=== PATIENT | female | born 1980 | race Caucasian/White ===

== ENCOUNTER 2020-05-21 16:06 | Emergency (ER) | payer OTHER, SELFPAY ==
[2020-05-21 16:29] VITALS: BP 160/92; PULSE 98; RESP 18; TEMP 37; O2SAT 98; BMI 36.6
[2020-05-21 17:00] VITALS: BP 151/100; PULSE 100; RESP 18; TEMP 36.6; O2SAT 97
--- NOTE | 2020-05-21 17:06 | PC.NURSE ---
Patient arrives reporting vaginal bleeding x 15 days. Reports flow has remained heavy the entire time. Per patient will fill a pad in 45 minutes. Patient is alert and oriented. Denies fatigue, weakness, dizziness, or SOB. Respirations regular and even. Skin PWD. VSS. Awaiting primary evaluation.
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
[2020-05-21] MEDS: 0.9 % Sodium Chloride 1,000 ML 999 ML IVCONT (17:57)
[2020-05-21 18:04] LABS: Basophils Absolute Auto 0.1 X10*3/uL (0.0-0.2); Basophils Percent Auto 0.7 % (0-2); Eosinophils Absolute Auto 0.4 X10*3/uL (0.0-0.4); Hemoglobin 10.6 g/dl (12.0-16.0); Imm Gran Abs Auto 0.01 X10*3/uL (0.00-0.03); Imm Gran Pct Auto 0.1 % (0.0-0.4); Lymphocytes Absolute Auto 2.2 X10*3/uL (1.2-4.9); Lymphocytes Percent Auto 30.3 % (20-40); MANUAL DIFF FLAG NO; Mean Corpuscular HGB Conc 31.2 g/dl (31.0-35.0); Mean Corpuscular Hemoglobin 25.4 pg (27.0-33.0); Mean Corpuscular Volume 81.5 fL (80-98); Mean Platelet Volume 11.2 fL (9.4-12.3); Monocytes Absolute Auto 0.4 X10*3/uL (0.1-1.2); Monocytes Percent Auto 5.5 % (2-11); Neutrophils Absolute Auto 4.1 X10*3/uL (2.0-8.3); Neutrophils Percent Auto 57.4 % (45-73); Platelet Count 261 X10*3/uL (160-400); Red Blood Count 4.17 X10*6/uL (4.20-5.50); Red Cell Distribution Width 13.6 % (11.0-16.0); White Blood Count 7.2 X10*3/uL (4.8-10.8)
[2020-05-21 18:12] LABS: INTERNATIONAL NORM RATIO 1.2 (0.9-1.1); Prothrombin Time 14.3 SEC (10.8-13.0)
[2020-05-21 18:14] LABS: Partial Thromboplastin Time 33.6 SEC (24.1-38.0)
[2020-05-21 18:32] LABS: Anion Gap 13 (12-20); Blood Urea Nitrogen 9 mg/dL (9-16); Calcium 9.6 mg/dL (8.4-10.2); Carbon Dioxide 24 mmol/L (22-29); Chloride 104 mmol/L (96-108); Creatinine Clr Calc Pharmacy 110.2; Estimated Glomerular Filt Rate > 60; Glucose Random 89 mg/dL (60-115); Potassium 3.9 mmol/l (3.3-5.1); Sodium 137 mmol/L (135-145)
--- NOTE | 2020-05-21 18:37 | US_ITS ---
EXAM: Pelvic Ultrasound CLINICAL INDICATION: Abnormal uterine bleeding. COMPARISON: No similar prior imaging available for comparison. TECHNIQUE: The pelvis was evaluated using transabdominal and transvaginal imaging. FINDINGS: The uterus measures 10.3 x 4.8 x 5.1 cm in longitudinal by AP by transverse dimension. The endometrial stripe is not thickened and measures 0.9 cm. The cervix measures approximately 3.5 cm in length. Nabothian cysts are noted within the cervix. Prominent vessels noted in the region of the endocervical junction, nonspecific. Myometrium appears asymmetrically thickness, more prominent posteriorly. There is a suspected 1.2 cm anterior fundal fibroid. The left ovary measures approximately 2.1 x 2.9 x 1.2 cm. The right ovary measures approximately 3.1 x 3.3 x 2.6 cm. There is a 2.1 cm left ovarian cyst and a 1.7 cm right ovarian cyst, both of which are simple in appearance. Within the right ovary there is a 1.7 cm solid-appearing lesion which is nonspecific. There is no free fluid in the pelvis. US/US pelvic complete IMPRESSION: 1. Endometrium measures 9 mm in thickness. 2. Asymmetric myometrium. Also noted are prominent vessels in the region of the endocervical junction. A small suspected fibroid is also noted. Clinical correlation is recommended. Further evaluation can be obtained with MRI imaging as clinically indicated. 3. Small bilateral ovarian cysts. 4. Nonspecific 1.7 cm solid-appearing lesion of the right ovary, possibly a complex cyst. Short-term interval follow-up recommended to ensure resolution. An underlying ovarian mass is not entirely excluded.
--- NOTE | 2020-05-21 18:46 | PC.NURSE ---
IV established and labs drawn. Hung NS 1L. Patient tolerated well. Assessed by Babs DELIVERY AND INSTALLATION SUBCONTRACTOR. Pelvic exam obtained at bedside. Patient reports some pain. Large clots removed from vaginal canal. Awaiting lab results, ultrasound, and consult with Dr. Vanegas.
[2020-05-21] MEDS: Tranexamic Acid 650 MG TABLET 1300 MG PO (18:53)
[2020-05-21 18:55] VITALS: BP 162/101; PULSE 98; RESP 18; TEMP 36.6; O2SAT 99
[2020-05-21 19:57] LABS: Glucose Urine UA NEG (NEG); Leukocyte Esterase Urine NEG (NEG); Nitrite Urine NEG (NEG); PH 5.5 (5.0-8.0); Specific Gravity - Urine <= 1.005 (1.005-1.025); Urine Blood 3+ (NEG); Urine Ketones NEG (NEG); Urine Protein NEG (NEG-TRACE)
[2020-05-21 20:00] LABS: Appearance Urine CLEAR; Color Urine STRAW
[2020-05-21 20:08] LABS: RBC Urine 30-49 /HPF (0); Squamous Epithelial Cell Urine 1+ /LPF; WBC Urine 0 /HPF (0-4)
[2020-05-21 20:24] LABS: UPreg QC Valid YES; Urine Pregnancy NEGATIVE (NEGATIVE)
[2020-05-21 20:46] VITALS: BP 150/85; PULSE 86; RESP 18; TEMP 36.5; O2SAT 100
== END 2020-05-21 21:55 | disposition home or self-care (01) ==
PROVIDERS: Nurse Practitioner Family; Emergency Provider Internal Medicine
DX: N92.1 Excessive and frequent menstruation with irregular cycle (principal); R10.2 Pelvic and perineal pain
CPT/HCPCS: 36415; 76830; 76856; 80048; 81001; 81025; 85025; 85610; 85730; 96360; 99284

== ENCOUNTER 2020-05-23 14:28 | Outpatient (REF) | payer OTHER, SELFPAY ==
[2020-05-23 16:16] LABS: TSH reflex Free T4 0.44 mIU/mL (0.32-4.0)
[2020-05-24 19:22] LABS: Follicle Stimulating Hormone 4.9 mIU/mL
[2020-05-30 10:37] LABS: HPV mRNA E6/E7 rflx Not Detected (Not Detected)
== END 2020-05-23 14:29 | disposition home or self-care (01) ==
LOC: HO.LAB 14:28
PROVIDERS: Visit Provider Obstetrics & Gynecology
DX: N93.9 Abnormal uterine and vaginal bleeding, unspecified (principal)
CPT/HCPCS: 83001; 84443; 87624; 87625; 88141; 88142; 99202

== ENCOUNTER → 2020-06-06 10:58 | Outpatient (BNVA) | payer OTHER, SELFPAY | PROVIDERS: Visit Provider Obstetrics & Gynecology | DX: Z76.89 Persons encountering health services in other specified circumstances (principal) ==

== ENCOUNTER 2020-07-02 08:57 | Outpatient (REF) | payer OTHER, SELFPAY | END 2020-07-02 08:58 | disposition home or self-care (01) | LOC: HO.LAB 08:57 | PROVIDERS: Visit Provider Internal Medicine | DX: Z20.822 Contact with and (suspected) exposure to COVID-19 (principal) | CPT/HCPCS: 36415; C9803; U0003 ==

== ENCOUNTER 2020-12-14 09:34 | Outpatient (REF) | payer OTHER, SELFPAY ==
[2020-12-14 10:58] LABS: MANUAL DIFF FLAG NO
[2020-12-14 11:07] LABS: Basophils Absolute Auto 0.1 X10*3/uL (0.0-0.2); Basophils Percent Auto 1.1 % (0-2); Eosinophils Absolute Auto 0.5 X10*3/uL (0.0-0.4); Eosinophils Percent Auto 8.1 % (0-4); Hematocrit 32.1 % (37-47); Hemoglobin 9.8 g/dl (12.0-16.0); Imm Gran Abs Auto 0.02 X10*3/uL (0.00-0.03); Imm Gran Pct Auto 0.4 % (0.0-0.4); Lymphocytes Absolute Auto 1.8 X10*3/uL (1.2-4.9); Lymphocytes Percent Auto 31.9 % (20-40); Mean Corpuscular HGB Conc 30.5 g/dl (31.0-35.0); Mean Corpuscular Hemoglobin 23.6 pg (27.0-33.0); Mean Corpuscular Volume 77.3 fL (80-98); Mean Platelet Volume 11.4 fL (9.4-12.3); Monocytes Absolute Auto 0.3 X10*3/uL (0.1-1.2); Monocytes Percent Auto 4.8 % (2-11); Neutrophils Percent Auto 53.7 % (45-73); Platelet Count 225 X10*3/uL (160-400); Red Blood Count 4.15 X10*6/uL (4.20-5.50); Red Cell Distribution Width 16.6 % (11.0-16.0); White Blood Count 5.6 X10*3/uL (4.8-10.8)
[2020-12-14 11:45] LABS: Erythrocyte Sedimentation Rate 8 MM/HR (0-20)
[2020-12-17 11:53] LABS: IgA 234 mg/dL (47-310); IgG 1012 mg/dL (600-1640); IgM 109 mg/dL (50-300)
[2020-12-20 08:16] LABS: Immunoglobulin E 366 kU/L (<OR=114)
== END 2020-12-14 09:35 | disposition home or self-care (01) ==
LOC: HO.LAB 09:34
PROVIDERS: Visit Provider Hospitalist
DX: J45.51 Severe persistent asthma with (acute) exacerbation (principal); T78.40XA Allergy, unspecified, initial encounter; J33.9 Nasal polyp, unspecified; Z79.899 Other long term (current) drug therapy
CPT/HCPCS: 36415; 82784; 82785; 85025; 85652; 99202

== ENCOUNTER → 2021-01-14 10:36 | Outpatient (BNVA) | payer OTHER, SELFPAY | PROVIDERS: Visit Provider Hospitalist | DX: J33.9 Nasal polyp, unspecified (principal); R05 Cough; J45.50 Severe persistent asthma, uncomplicated | CPT/HCPCS: 99212 ==

== ENCOUNTER → 2021-02-11 13:37 | Outpatient (BNVA) | payer OTHER, SELFPAY | PROVIDERS: Visit Provider Hospitalist | DX: J45.50 Severe persistent asthma, uncomplicated (principal) | CPT/HCPCS: 99211 ==

== ENCOUNTER → 2021-05-16 13:33 | Outpatient (BNVA) | payer OTHER, SELFPAY | PROVIDERS: Visit Provider Hospitalist | DX: J45.51 Severe persistent asthma with (acute) exacerbation (principal); J33.9 Nasal polyp, unspecified; R05.9 Cough, unspecified; Z88.8 Allergy status to other drugs, medicaments and biological substances; J30.1 Allergic rhinitis due to pollen; Z91.09 Other allergy status, other than to drugs and biological substances | CPT/HCPCS: 99212 ==

== ENCOUNTER → 2022-01-09 13:37 | Outpatient (BNVA) | payer OTHER, SELFPAY | PROVIDERS: Visit Provider Hospitalist | DX: J45.50 Severe persistent asthma, uncomplicated (principal); J33.9 Nasal polyp, unspecified; Z79.899 Other long term (current) drug therapy | CPT/HCPCS: 99212 ==

== ENCOUNTER 2023-01-05 15:51 | Outpatient (AMB) | payer OTHER, SELFPAY ==
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
[2023-01-05 15:57] VITALS: PULSE 89; O2SAT 97; BMI 42.1
== END 2023-01-05 16:13 | disposition home or self-care (01) ==
PROVIDERS: Visit Provider Hospitalist
DX: J45.50 Severe persistent asthma, uncomplicated (principal); J33.9 Nasal polyp, unspecified; R05.9 Cough, unspecified
CPT/HCPCS: 99214

== ENCOUNTER → 2023-01-05 15:51 | Outpatient (BNVA) | payer OTHER, SELFPAY | PROVIDERS: Visit Provider Hospitalist | DX: J45.40 Moderate persistent asthma, uncomplicated (principal); R05.9 Cough, unspecified; J33.9 Nasal polyp, unspecified | CPT/HCPCS: 99212 ==

== ENCOUNTER 2023-10-02 14:48 | Outpatient (REF) | payer OTHER, SELFPAY ==
[2023-10-02 09:47] VITALS: PULSE 92; RESP 16; O2SAT 97
--- NOTE | 2023-10-02 15:58 | PFT_ITS ---
Indication: Asthma Spirometry [FEV1 to FVC 84%; FEV1 2.56 L; FVC 3.04 L. no significant response to bronchodilators noted. Maximum voluntary ventilation 105% predicted] Lung Volumes [Total lung capacity 84% predicted] Diffusion Capacity DLCO 102% predicted Comparisons [None] Interpretation [No obstructive nor restrictive ventilatory defects appreciated. No significant response to bronchodilators noted. Normal maximum voluntary ventilation. Lung volumes are normal using capacity also within normal limits. If asthma is in differential methacholine challenge may be helpful to assess for hyperreactive airways. Clinical correlation warranted.] MTDD
== END 2023-10-02 14:49 | disposition home or self-care (01) ==
LOC: HO.RESP 14:48
PROVIDERS: PCP Physician Assistant; Visit Provider Hospitalist
DX: J45.909 Unspecified asthma, uncomplicated (principal)
CPT/HCPCS: 94010; 94640; 94727; 94729

== ENCOUNTER → 2023-10-02 15:58 | Outpatient (BNV) | payer OTHER, SELFPAY | PROVIDERS: PCP Physician Assistant; Visit Provider Hospitalist | DX: J45.909 Unspecified asthma, uncomplicated (principal) | CPT/HCPCS: 94060; 94727; 94729 ==

== ENCOUNTER → 2023-11-06 15:31 | Outpatient (BNVA) | payer OTHER, SELFPAY | PROVIDERS: PCP Physician Assistant; Visit Provider Hospitalist | DX: J45.50 Severe persistent asthma, uncomplicated (principal); J33.9 Nasal polyp, unspecified; R05.3 Chronic cough; Z79.899 Other long term (current) drug therapy | CPT/HCPCS: 99212 ==

== ENCOUNTER 2025-01-30 15:24 | Outpatient (AMB) | payer OTHER, SELFPAY ==
[2025-01-30 15:26] VITALS: BP 170/112; PULSE 88; O2SAT 977; BMI 43.3
--- NOTE | 2025-01-30 15:26 | MHC.OFFVIS ---
Vital Signs 01/30/25 15:26 Height 5 ft 2 in Weight 236 lb 15.951 oz BMI 43.3 BP 170/112 H Blood Pressure Location Rt brachial Pulse 88 Pulse Source Pulse Oximeter Pulse Oximetry (%) 977 H Oxygen Delivery Method Room Air Intake Visit Reasons: Asthma Accompanied by: Self / Same As Patient Allergies ibuprofen (From MOTRIN) Allergy (Severe, Verified 01/30/25 15:30) Hives ENVIROMENTAL Allergy (Severe, Uncoded 11/06/23 15:41) NASAL STUFFINESS, ASTHMA FLARE UP pollen and alot of items Allergy (Severe, Uncoded 11/06/23 15:41) Hives HPI Comments Details: The Patient is a 44-year-old woman with a known history significant allergies and moderate persistent asthma. She had been tolerating the allergy shots for more than year in appeared to be helpful., more recently breathing has gotten significantly worse. The patient has required courses of prednisone for flare ups. She has not been seen any improvement. Therefore she was referred to Pulmonary. On examination today the patient is significantly wheezy. Although, she is reluctant to take additional prednisone if she can avoid it. In addition to having significant asthma she has nasal polyps. The patient does not have a history of adverse effects to aspirin. The patient has been introduced to any biologic therapy as of yet. Although with her significant if she does not respond to maximum respiratory therapy indeed be very reasonable to consider in order to improve respiratory status and decrease the need for prednisone. In her household she denies having any birds or any mold. She does very clean and tired house. Denies any fumes or toxins work. She does have significant allergies noted based on her allergy testing done by ENT. 01/14/2021 the patient is here for pulmonary follow-up visit. Overall she is doing a little better. She did try the Trelegy inhaler but resulted in nausea and vomiting. Therefore she stopped it when back on her Breo. She also try the Zyrtec but admitted to drowsy. She did go back in the Claritin. We did review her blood work demonstrating significant Eosinophilia and also elevation in her IgE level. She did get allergy shots recently at the ENT office. But, she had a significant reaction she could not continue. At this point the patient with a history of nasal polyposis and severe persistent asthma with elevations in the eosinophils/IgE will be a great candidate for Dupixent. We will therefore, will start the process to getting her on Dupixent. Based on her allergy shots and her significant allergies I will also refer her to an facility technician to further address this issue. In the meantime the patient will continue with current therapy. 11/06/2023 the patient is here for a pulmonary follow-up visit. The patient is doing significantly better. The Dupixent has been very effective for her. She no longer has any nasal polyps which is really reassuring. The patient has continue her respiratory therapy in addition to Allergy therapy. She has not required any prednisone. Denies any conjunctivitis and is tolerating the Dupixent well without any adverse effects. Explained to the patient that the Dupixent is not providing acute over treating the symptoms and the allergic reactions. The patient she is to follow-up with Allergy to further discuss immunotherapy. 01/30/2025 the patient is here for pulmonary follow-up visit. The patient overall has been doing very well from a respiratory status. Dupixent continues to be very affecting beneficial. She continues to carry her rescue inhaler but she does not have to use it. Nasal polyps also significantly improved. The issues that she is having a very high blood pressure today. Initially when the mA checked it on the right arm was 175/112. I did check it on the left time was 180/105. The patient is asymptomatic overall on further questions. We did reach out to her primary care at [facility]. I did speak to the nurse triage [facility] and she was going to call the patient and set her up an appointment for tomorrow. In the meantime if the patient develops any significant symptoms such as headaches palpitations chest pains or any other concerning symptoms she is to go to the ED for urgent medical evaluation. She will continue with the current Dupixent shots. They have been very affecting beneficial will follow-up in the spring for follow-up. [facility] Medical History (Updated 01/30/25 @ 21:37 by Tani Monzon MD) Hypertensive urgency Nasal polyps Cough Asthma Asthma Social History Alcohol intake: never Patient Tobacco Use Status: Never used Tobacco Sexual orientation: Straight/Heterosexual Gender identity: Female Review of Systems Const Denies night sweats ENT Denies change in voice, Denies lip swelling, Denies mouth pain, Reports nasal congestion, Reports nasal discharge and Denies tongue swelling Card Denies chest pain Resp Denies chest congestion, Reports cough and Denies wheezing GI Denies abdominal pain Musc Denies no additional complaints Neuro Denies Neuro-related abnormal movements Psych Denies no additional complaints Florian/Lymph Denies easy bleeding and Denies lymphadenopathy Aller/Immun Denies lip swelling, Denies tongue swelling and Denies wheezing Physical Exam Vital Signs: Last Vital Signs Pulse 88 01/30/25 15:26 BP 170/112 H 01/30/25 15:26 Pulse Ox 977 H 01/30/25 15:26 Oxygen Delivery Method Room Air 01/30/25 15:26 BMI result Body Mass Index 43.3 Const General: alert Neck Neck: Yes normal visual inspection, Yes full ROM and Yes no lymphadenopathy Chest Chest palpation & inspection: normal inspection of the chest Resp Effort & Inspection: normal respiratory effort Auscultation: clear to auscultation bilaterally and no wheezes Cardio Rate: regular rate Rhythm: regular rhythm Heart sounds: S1 normal heart sound present and S2 normal heart sound present GI Palpation (GI): Soft to palpation and nontender Auscultation: normal bowel sounds Skin General skin exam: rashes and/or lesions noted Extrem General: No clubbing, No cyanosis and Yes edema Assessment & Plan Assessment & Plan (1) Asthma: Code(s): J45.909 - Unspecified asthma, uncomplicated Category: Medical Qualifiers: Asthma complication type: uncomplicated Asthma persistence: persistent Asthma severity: severe Qualified Code(s): J45.50 - Severe persistent asthma, uncomplicated (2) Nasal polyps: Code(s): J33.9 - Nasal polyp, unspecified Category: Medical (3) Cough: Code(s): R05 - Cough Category: Medical Qualifiers: Cough type: chronic Qualified Code(s): R05.3 - Chronic cough (4) Hypertensive urgency: Code(s): I16.0 - Hypertensive urgency Category: Medical Plan continue Dupixent holding Breo LILY as needed continue Claritin continue [facility] called and will make her an urgent visit tomorrow. Pt knows to seek urgent medical care for any symptoms follow-up in to 6-8 months Coding Level of Care Code Est Pt Level 4 (16050) Complex EM visit Add On G2211 Diagnoses Severe persistent asthma without complication J45.50 Asthma complication type: uncomplicated Asthma persistence: persistent Asthma severity: severe Nasal polyps J33.9 Chronic cough R05.3 Cough type: chronic Hypertensive urgency I16.0 Time Spent (min) 16
--- OUTSIDE RECORDS SUMMARY | 2025-01-30 15:27 | XMS_ITS | Clinical Summary ---
Author Organization [facility] Address [address] [place] [id number] Phone Care Team Providers Care Clinical Data Analyst Name Role Phone Faby Kaminski DO Primary Care Provid er Allergies Active Allergy Reactions Criticality Noted Date Comments Aspirin Hives Medium 03/23/2018 Ibuprofen Hives Medium 10/11/2018 Medications albuterol 2.5 mg /3 mL (0.083 %) nebulizer solution Inhale 2.5 mg into the lungs. 01/25/2018 Active albuterol 90 mcg/actuation inhaler Inhale 2 puffs into the lungs. 01/25/2018 Active EPINEPHrine 0.3 mg/0.3 mL auto-injector Inject as directed. Active fluticasone propionate (FLONASE) 50 mcg/actuation nasal spray 2 sprays by Nasal route. Active loratadine (CLARITIN) 10 mg tablet Take 10 mg by mouth. Active montelukast (SINGULAIR) 10 mg tablet Take 10 mg by mouth. Active aspirin 325 MG EC tablet Take 1 tablet (325 mg total) by mouth daily. 120 tablet 5 06/06/2019 Active BREO ELLIPTA 200-25 mcg/dose inhalerIndicati ons:[facility] asthma INHALE 1 PUFF INTO THE LUNGS DAILY 180 each 3 06/01/2020 Active omeprazole (PRILOSEC) 40 MG capsule Take 1 capsule (40 mg total) by mouth daily. 30 capsule 5 04/15/2021 Active Active Problems Problem Noted Date Diagnosed Date Encounter for desensitization to allergen 2018 Assessment & Plan (05/31/2019 5:33 PM EST): Successful completion of day 1 of aspirin desensitization protocol. Mild reactions requiring additional dosing of 81 mg dose. To return in a.m. Plan to resume at 162 mg aspirin dose. Should take all medications including Breo, loratadine and Montelukast. Assessment & Plan (05/31/2019 5:13 PM EST): Successful aspirin desensitization. Patient instructed to start enteric-coated aspirin 650 mg twice daily beginning tomorrow morning. Reviewed potential side effects of aspirin including GI upset and ulcer. Aware if misses more than 2 doses, can have severe reaction and should call prior to resuming therapy as would likely need to reinstitute protocol. EpiPen prescribed and has Benadryl at home for allergic reactions. Patient should follow-up in 6 weeks for reevaluation and reinforcement of protocol. Allergic rhinitis 03/23/2018 Assessment & Plan (10/14/2019 11:56 AM EDT): Continue Singulair, loratadine and Flonase. Assessment & Plan (04/12/2019 11:49 AM EDT): Would continue treatment with Singulair, Claritin and Flonase, though ultimately will defer to ENT. She is scheduled for FESS next week and aspirin desensitization a number of weeks following surgery. Assessment & Plan (01/20/2019 1:58 PM EDT): Continue sinulair, flonase and claritin. Morbid obesity with BMI of 40.0-44.9, adult 02/28 [facility] asthma 01/25/2018 Assessment & Plan (10/14/2019 11:56 AM EDT): Well-controlled on high-dose Breo, which we will continue. Plan spirometry and exhaled nitric oxide measurements in the office at next scheduled appointment. Assessment & Plan (05/31/2019 5:29 PM EST): Stable on current regimen in preparation for with no exacerbation of asthma during oral aspirin challenge and desensitization. Assessment & Plan (05/31/2019 5:12 PM EST): Continue montelukast asked with inhaled steroids. Consider addition of Zyflo if patient reliable to have LFT monitoring. Assessment & Plan (04/12/2019 11:49 AM EDT): Very well controlled on high-dose Breo, which we will continue. I will plan to see her back in 6 months with office spirometry and exhaled nitric oxide measurements at that time. We will administer the influenza vaccine today. Assessment & Plan (01/20/2019 2:07 PM EDT): Clinically, she is doing very well since initiation of high-dose Breo for management of her asthma. Spirometry performed in the office today is normal (though ATS criteria for reproducibility were not met). She was unable to perform exhaled nitric oxide measurements satisfactorily. Laboratory evaluation, per HPI, reveals that her eosinophil count is low, and while her IgE is elevated with perennial sensitivity to house dust mites, her weight brings her out of dosage range for Xolair. For now, given excellent asthma control on her current regimen of Breo 200-25, singulair, claritin and flonase, I would continue current medications. Assessment & Plan (10/11/2018 2:43 PM EDT): Her asthma appears uncontrolled at this time. That being said, I am not convinced that her aspirin sensitivity is playing a significant role. There is no physiologic testing available for review (she does not recall having performed spirometry or pulmonary function testing in the past). Will obtain office spirometry today (reviewed - normal). There is no baseline chest imaging, therefore will obtain a two-view chest x- ray. We will try switching from Advair to high-dose Breo. 200-25 Continue Singulair, Claritin and Flonase. Consider adding Spiriva Respimat [address] Will obtain IgE, CBC with differential to look for eosinophilia, house dust mites and mold panels. This will help evaluate her possible candidacy for Xolair, Nucala or Fasenra. Would not pursue aspirin desensitization at this time given that she has not exhausted basic asthma control management options, and risks of bleeding associated with chronic use of high-dose aspirin for maintenance. Certainly, if aspirin desensitization were to become necessary, I could make arrangements for her to see my colleague Dr. Roberts for allergy/immunology evaluation. Nasal polyps 01/25/2018 Overview (10/14/2019): S/p FESS on 04/19/[address] Patel. Assessment & Plan (05/31/2019 5:29 PM EST): For aspirin desensitization following nasal polyp surgery. Assessment & Plan (05/31/2019 5:11 PM EST): Continue recommended therapy post polyp surgery with twice daily nasal rinse with budesonide. Follow-up with ENT. After 3 months of high-dose aspirin therapy, if polyps remain controlled, could consider decreasing to standard dose, 325 mg twice daily. Assessment & Plan (04/12/2019 11:50 AM EDT): Scheduled for polyp surgery next week with Dr. Patel. Assessment & Plan (01/20/2019 2:06 PM EDT): I called Dr. Patel's office to discuss next steps in management of her polyps, left message with his staff for call back. If FESS is felt to be necessary, I will make arrangements for her to see Dr. Roberts for consideration of aspirin desensitization given her severe nasal polyposis in the context of AERD. Obstructive sleep apnea syndrome 01/25/2018 Resolved Problems Problem Noted Date Diagnosed Date Resolved Date Encounter for preoperative p ulmonary examination 04/12/2019 10/14/2019 Assessment & Plan (04/12/2019 11:51 AM EDT): Given excellent asthma control in recent months, I would deem her low risk for the proposed operation and would proceed without additional work-up or intervention. She should use her daily dose of Breo on the day of surgery. She does have an elevated BMI and possible sleep apnea, and therefore postoperatively I would consider closely monitoring her oxygen saturation and end-tidal CO2, but will ultimately defer perioperative management to her anesthesia team. Immunizations Immunization Administration Dates Next Due Influenza Quadrivalent Preservative Free IM 03/29 Pneumococcal polysaccharide PPSV23 10/15/2015 Social History Tobacco Use Types Packs/Day Years Used Date Smoking Tobacco: Never Smokeless Tobacco: Never Education Answer Date Recorded Are you interested in more education? Not on millicent e 10/24/2022 Are you concerned about learning? Not on file 10/24/2022 No 10/24/2022 No 10/24/2022 Digital Access Answer Date Recorded No 11/22/2022 No 11/22/2022 No 11/22/2022 Reliable internet access at home? Not on file 11/22/2022 Device with a working camera? Not on file Comments Unknown Sex and Gender Information Value Date Recorded Sex Assigned at Not on file Legal Sex Female 10:16 AM EST Gender Identity Not on file Sexual Orientation Not on file Last Filed Vital Signs Vital Sign Reading Time Taken Comments Blood Pressure 128/86 04/12/2019 11:25 AM EDT Pulse 84 04/12/2019 11:25 AM EDT Temperature 37.2 C (98.9 F) 10/11/2018 12:48 PM EDT Respiratory Rate - - Oxygen Saturation 98% 04/12/2019 11:25 AM EDT Inhaled Oxygen Concentration - - Weight 104.3 kg (230 lb) 04/12/2019 11:25 AM EDT Height - - Body Mass Index - - Plan of Treatment Health Maintenance Due Date Last Done Comments LIPID PANEL 1979 DEPRESSION SCREENING 1991 HEPATITIS C SCREENING 1997 HIV ONE-TIME SCREENING (18-6 5 YEARS) 1997 PAP SMEAR 2000 PNEUMOCOCCAL VACCINES (0-49 years) (2 of 2 - PCV) 10/14/2016 10/15/2015 MAMMOGRAM 2019 COVID-19 VACCINE (2 - 2023-2 5 season) 2024 10/16/2020 COLOGUARD 2024 COLONOSCOPY 2024 COLORECTAL CANCER SCREENING 2024 FIT TEST 2024 FOBT 2024 SIGMOIDOSCOPY 2024 VIRTUAL COLONOSCOPY 2024 Adult Td,Tdap Booster 04/06/2030 04/06/2020 SMOKING STATUS SCREENING (On ce After 26 Yrs) Completed 10/14/2019 HEPATITIS A VACCINES Aged Out No long er eligible based on patient's age to complete this topic HIB VACCINES Aged Out No longer eligi ble based on patient's age to complete this topic MENINGOCOCCAL VACCINES (ACWY) Aged Out No longer eligible based on patient's age to complete this topic MENINGOCOCCAL VACCINES (B) Aged Out N o longer eligible based on patient's age to complete this topic Medical Devices Not on file Insurance [facility] NON NSPG PCP [employer] [facility] NON NSPG PCP [place] [employer] [facility] NON NSPG PCP [place] [employer] [place] NON NSPG PCP [place] [facility] NON NSPG PCP [place] [place] NON NSPG PCP [place] [place] NON NSPG PCP S[place] [facility] NON NSPG PCP [place] [place] NON NSPG PCP [employer] Care Teams Clinical Data Analyst Relationship Specialty Start Date End Date Faby Kaminski DO [address] [place] [phone] PCP - General Pediatrics 10/11/18 Additional Source Comments The information contained in this document represents components of the legal health record. It is not the complete legal health record.[facility]
--- OUTSIDE RECORDS SUMMARY | 2025-01-30 15:27 | XMS_ITS | Clinical Summary ---
Author Organization [address] Address [address] [place] [phone] Phone Care Team Providers Care Free Lance Artist Name Role Phone Vonda Moran MD Primary Care Prov ider Allergies Active Allergy Reactions Criticality Noted Date Comments Acetaminophen-Pamabrom 08/26/2021 Other Reaction(s): Rash/Dermatitis Aspirin 03/23/2018 Medications albuterol HFA (PROAIR HFA ; PROVENTIL HFA ; VENTOLIN HFA) 90 mcg/actuation inhaler Inhale 2 Puffs into the lungs every 6 hours as needed for Cough, Wheezing or Shortness of Breath. 3 Active EPINEPHrine (EpiPen 2-Amilcar) 0.3 mg/0.3 mL injection Inject 0.3 mg as directed as needed (anaphylaxis). 2 Active loratadine (CLARITIN) 10 mg tablet Take 1 tablet (10 mg total) by mouth 1 (one) time each day. 4 Active montelukast (SINGULAIR) 10 mg tablet TAKE ONE TABLET BY MOUTH EVERY EVENING AT BEDTIME 90 tablet 1 5 Active lisinopriL (PRINIVIL,ZESTR IL) 30 mg tablet TAKE ONE TABLET BY MOUTH EVERY DAY 90 tablet 1 5 Active Active Problems Problem Noted Date Diagnosed Date Morbid obesity with BMI of 4 0.0-44.9, adult (CMS/HCC V24, CMS/HCC V28) 04/14/2024 Migraines 08/26/2021 Vitamin D deficiency 08/26/2021 Iron deficiency anemia 06/11/2021 Hypertension 05/21/2021 Abnormal Pap smear of cervix 05/20/2021 Overview (04/14/2024): ?LEEP at [facility]? Unclear history Allergic rhinitis 03/23/2018 Overview (04/14/2024): Dr Patel Moderate persistent asthma 01/25/2018 Overview (04/14/2024): Follows with Dr Snyder ([facility]) Nasal polyps 01/25/2018 Obstructive sleep apnea syndrome 01/25/2018 Immunizations Name Administration Dates Next Due Hep A, Unspecified 09/10/2010 Hepatitis B (Dxukpcw-N-Dvkkt , Recombivax HB-Adult) 19yo and older 03/03/2012,12/05/2010,09/10/2010 Influenza Quadravalent, MDCK , 0.5ml, preservative free (Flucelvax) 6mo and older 06/16/2021,04/06/2020 Influenza trivalent, 0.5mL, preservative free (Fluarix; FluLaval; Fluzone) ages 6mo and older (Afluria) 3 years and older 03/28/2024,04/12/2019 Influenza trivalent, with pr eservative (Fluzone; Afluria) 6mo and older 04/26/2018,04/28/2016,04/26/2015,03/28,03/03/2012,04/01/2010 Influenza, Unspecified 05/03/2023,04/09/2022 Pneumococcal polysaccharide 23 valent (Pneumovax 23) 2yo and older 10/15/2015,04/03/2014 Td Tetanus diptheria (Tdvax) 7yo and older 04/06/2020 Tdap Tetanus diptheria acell ular pertussis (Boostrix; Adacel) 7yo and older 04/01/2010 Surgical History Surgery Date Site/Laterality Comments OTHER SURGICAL HISTORY 08/26/2016 PROCEDURE: LA NSL/SINUS NDSC MAX ANTROST W/RMVL TISS MAX SINUS; COMMENT: for polyps OTHER SURGICAL HISTORY PROCEDURE: LA NSL/SINUS NDSC MAX ANTROST W/RMVL TISS MAX SINUS; COMMENT: for nasal polyps SECTION PROCEDURE: HISTORICAL DELIVERY TUBAL LIGATION PROCEDURE: HISTORICAL TUBAL LIGATION OTHER SURGICAL HISTORY 04/06/2013 PROCEDURE: CERVICAL LEEP CONE BIOPSY [facility] PATHOLOGY EX; COMMENT: CIN2 Medical History Medical History Date Comments Morbid obesity with BMI of 4 0.0-44.9, adult ([facility] V24, [facility] V28) 03/23/2018 DX:Morbid obesity wit h BMI of 40.0-44.9, adult ([facility]) Allergic rhinitis 03/23/2018 DX:Allergic rh initis Moderate persistent asthma 01/25/2018 DX:Mo derate persistent asthma Nasal polyps 01/25/2018 DX:Nasal polyps Obstructive sleep apnea syndrome 01/25/2018 DX:Obstructive sleep apnea syndrome Migraines 08/26/2021 DX:Migraines Vitamin D deficiency 08/26/2021 DX:Vitamin D deficiency Abnormal Pap smear of cervix 05/20/2021 DX: Abnormal Pap smear of cervix; COMMENT: ?LEEP at [place]? Unclear history Hypertension 05/21/2021 DX:Hypertension Iron deficiency anemia 06/11/2021 DX:Iron d eficiency anemia Family History Medical History Relation Name Comments No Known Problems Brother x 1 No Known Problems Daughter Leukemia Father Other: luekemia Father No Known Problems Maternal Grandfather No Known Problems Maternal Grandmother Obesity Mother No Known Problems Paternal Grandfather No Known Problems Paternal Grandmother No Known Problems Sister x 1 Breast cancer Neg Hx Colon cancer Neg Hx Ovarian cancer Neg Hx Pancreatic cancer Neg Hx Prostate cancer Neg Hx Uterine cancer Neg Hx Relation Name Status Comments Brother x 1 Alive Daughter Father Maternal Grandfather Maternal Grandmother Mother Alive Paternal Grandfather Paternal Grandmother Sister x 1 Alive Social History Tobacco Use Types Packs/Day Years Used Date Smoking Tobacco: Never Smokeless Tobacco: Never Alcohol Use Standard Drinks/Week Comments Not Currently 0 (1 standard drink = 0.6 oz pur e alcohol) Comments Unknown Sex and Gender Information Value Date Recorded Sex Assigned at Not on file Legal Sex Female 12:21 AM EST Gender Identity Not on file Sexual Orientation Not on file Obstetrics History Last Filed Vital Signs Vital Sign Reading Time Taken Comments Blood Pressure 146/100 03/28/2024 9:48 AM EDT Pulse 85 03/28/2024 9:48 AM EDT Temperature - - Respiratory Rate - - Oxygen Saturation - - Inhaled Oxygen Concentration - - Weight 106 kg (234 lb) 03/28/2024 9:48 AM EDT Height 160 cm (5' 3 ) 08/18/2023 7:35 AM EST Body Mass Index 41.45 08/18/2023 7:35 AM EST Plan of Treatment Upcoming Encounters Date Type Department Care Team (Tania st Contact Info) Description 03/22/2025 8:00 AM EDT Appointment Radiology Department [address] [phone] Health Maintenance Due Date Last Done Comments Pneumococcal Vaccine: Pediatrics (0 to 5 Years) and At-Risk Patients (6 to 49 Years) (2 of 2 - PCV) 10/14/2016 10/15/2015, 04/03/2014 Colorectal Cancer Screening: Colonoscopy 06/07/2022 HIV Screening 06/07/2022 Social Influencers of Health Screening 06/07/2022 COVID-19 Vaccine ( season) 2024 10/16/2020, 09/25/2020 Depression Screening 06/29/2024 08/18/2023 Influenza Vaccine (#1) 2025 , 05/03/2023, 04/09/2022, Additional history exists Hypertension/CHF/CAD Annual BMP Blood Test 03/31/2025 03/31/2024, 03/31/2024 Breast Cancer Screening 01/18/2026 01/19/20 24, 01/19/2024, 12/26/2022 Cervical Cancer Screening: HPV 04/17/2027 04/17/2022 Cholesterol Screening (Lipid Panel) 03/31/2029 03/31/2024, 03/31/2024 DTaP,Tdap,and Td Vaccines (3 - Td or Tdap) 04/06/2030 04/06/2020, 04/01/2010 Hepatitis A Vaccines Aged Out 09/10/2010 No long er eligible based on patient's age to complete this topic Hepatitis B Vaccines Completed 03/03/2012, 12/05/2010, 09/10/2010 Hepatitis C Screening Completed 04/06/2020 HIB Vaccines Aged Out No longer eligi ble based on patient's age to complete this topic HPV Vaccines Aged Out No longer eligi ble based on patient's age to complete this topic IPV Vaccines Aged Out No longer eligi ble based on patient's age to complete this topic MMR Vaccines Aged Out No longer eligi ble based on patient's age to complete this topic Meningococcal ACWY Vaccine Aged Out N o longer eligible based on patient's age to complete this topic Meningococcal B Vaccine Aged Out No l onger eligible based on patient's age to complete this topic RSV Immunization Patients Under 20 months Aged Out No longer eligible based on patient's age to complete this topic Varicella Vaccines Aged Out No longer eligible based on patient's age to complete this topic Procedures Procedure Name Priority Date/Time Associated Diagnosis Comments ANNUAL BMP BLOOD TEST Routine 03/31/2024 LIPID PANEL Routine 03/31/2024 SCREENING MAMMOGRAPHY BI 2-VIEW BREAST INC CAD Routine 01/19/2024 4:01 PM EDT Encounter for screening mammogram for malignant neoplasm of breast DEPRESSION SCREENING Routine 08/18/2023 HPV Routine 04/17/2022 HEPATITIS C SCREENING Routine 04/06/2020 from Last 3 Months or Most Recently Relevant to Health Maintenance Results * Annual BMP Blood Test (03/31/2024) Pathologist [facility] Annual BMP Blood Test abstracted Historical Provider HEALTH MAINTENANCE Final Result * (ABNORMAL) Lipid panel (03/31/2024) LDL/HDL Ratio 5(A) 0 - 4 Triglycerides 132 0 - 150 mg/dL Cholesterol 197 0 - 200 mg/dL HDL 40 >=40 mg/dL LDL Cholesterol 131(A) 0 - 100 mg/dL Blood Venous blood specimen / Unknown Historical Provider LAB BLOOD ORDERABLES Omayra l Result * SCREENING MAMMOGRAPHY BI 2-VIEW BREAST INC CAD (01/19/2024 4:01 PM EDT) Anatomical Region Laterality Modality Radiographic Mehreen ging 12/26/2022 1:44 PM EDT Narrative 01/20/2024 8:57 AM EDT This is a summary report. The complete report is available in the patient's medical record. If you cannot access the medical record, please contact the sending organization for a detailed fax or copy. Full field digital screening tomosynthesis mammography, reviewed with CAD and compared to previous mammogram of 12/26/2022. The breasts are composed of fatty and fibroglandular tissue. No suspicious mass, architectural distortion or suspicious calcifications are identified. IMPRESSION: : No mammographic evidence of malignancy. BIRADS 1-Negative; N. 5 year breast cancer risk assessment 0.5 % Lifetime breast cancer risk assessment 6.9 % Breast cancer risk category Low (<15%) Procedure Note Trini Blandon MD - 04/13/2024 This is a summary report. The complete report is available in thepatient's medical record. If you cannot access the medical record, pleasecontact the sending organization for a detailed fax or copy. Full field digital screening tomosynthesis mammography, reviewed with CADand compared to previous mammogram of 12/26/2022. The breasts are composedof fatty and fibroglandular tissue. No suspicious mass, architecturaldistortion or suspicious calcifications are identified. IMPRESSION: : No mammographic evidence of malignancy. BIRADS 1-Negative; N. 5 year breast cancer risk assessment 0.5 % Lifetime breast cancer risk assessment 6.9 % Breast cancer risk category Low (<15%) [facility] IMG XR PROCEDURES Final Result * Depression Screening (08/18/2023) Pathologist [facility] Depression Screening abstracted Result [facility] Historical Provider HEALTH MAINTENANCE Final Result * Cervical Cancer Screening: HPV (04/17/2022) [facility] Cervical Cancer Screening: HPV negative,a bstracted Historical Provider HEALTH MAINTENANCE Final Result * Hepatitis C Screening (04/06/2020) [facility] Hepatitis C Screening abstracted us Historical Provider HEALTH MAINTENANCE Final Result from Last 3 Months or Most Recently Relevant to Health Maintenance [place] [address] [address] [employer] Care Teams Free Lance Artist Relationship Specialty Start Date End Date Vonda Moran MD [address] [place] [id number] PCP - General Internal Medicine 01/20/25
== END 2025-01-30 15:53 | disposition home or self-care (01) ==
LOC: HO.HPS 15:25
PROVIDERS: PCP Physician Assistant; Visit Provider Hospitalist
DX: J45.50 Severe persistent asthma, uncomplicated (principal); J33.9 Nasal polyp, unspecified; R05.3 Chronic cough; I16.0 Hypertensive urgency
CPT/HCPCS: 99214

== ENCOUNTER → 2025-01-30 15:24 | Outpatient (BNVA) | payer OTHER, SELFPAY | PROVIDERS: PCP Physician Assistant; Visit Provider Hospitalist | DX: J45.50 Severe persistent asthma, uncomplicated (principal); J33.9 Nasal polyp, unspecified; R05.3 Chronic cough; I16.0 Hypertensive urgency | CPT/HCPCS: 99212 ==

== ENCOUNTER 2025-03-02 10:09 | Outpatient (AMB) | payer OTHER, SELFPAY ==
--- NOTE | 2025-03-02 10:12 | MHC.OFFVIS ---
Vital Signs 03/02/25 10:13 Height 5 ft 2 in Weight 231 lb 7.766 oz BMI 42.3 BP 146/86 H Blood Pressure Location Lt brachial Position Sitting Pulse 104 H Pulse Source Pulse Oximeter Pulse Oximetry (%) 97 Oxygen Delivery Method Room Air Intake Visit Reasons: asthma exacerbation Accompanied by: Self / Same As Patient Allergies ibuprofen (From MOTRIN) Allergy (Severe, Verified 03/02/25 10:16) Hives ENVIROMENTAL Allergy (Severe, Uncoded 11/06/23 15:41) NASAL STUFFINESS, ASTHMA FLARE UP pollen and alot of items Allergy (Severe, Uncoded 11/06/23 15:41) Hives HPI Comments Details: The Patient is a 44-year-old woman with a known history significant allergies and moderate persistent asthma. She had been tolerating the allergy shots for more than year in appeared to be helpful., more recently breathing has gotten significantly worse. The patient has required courses of prednisone for flare ups. She has not been seen any improvement. Therefore she was referred to Pulmonary. On examination today the patient is significantly wheezy. Although, she is reluctant to take additional prednisone if she can avoid it. In addition to having significant asthma she has nasal polyps. The patient does not have a history of adverse effects to aspirin. The patient has been introduced to any biologic therapy as of yet. Although with her significant if she does not respond to maximum respiratory therapy indeed be very reasonable to consider in order to improve respiratory status and decrease the need for prednisone. In her household she denies having any birds or any mold. She does very clean and tired house. Denies any fumes or toxins work. She does have significant allergies noted based on her allergy testing done by ENT. 01/14/2021 the patient is here for pulmonary follow-up visit. Overall she is doing a little better. She did try the Trelegy inhaler but resulted in nausea and vomiting. Therefore she stopped it when back on her Breo. She also try the Zyrtec but admitted to drowsy. She did go back in the Claritin. We did review her blood work demonstrating significant Eosinophilia and also elevation in her IgE level. She did get allergy shots recently at the ENT office. But, she had a significant reaction she could not continue. At this point the patient with a history of nasal polyposis and severe persistent asthma with elevations in the eosinophils/IgE will be a great candidate for Dupixent. We will therefore, will start the process to getting her on Dupixent. Based on her allergy shots and her significant allergies I will also refer her to an delivery professional to further address this issue. In the meantime the patient will continue with current therapy. 11/06/2023 the patient is here for a pulmonary follow-up visit. The patient is doing significantly better. The Dupixent has been very effective for her. She no longer has any nasal polyps which is really reassuring. The patient has continue her respiratory therapy in addition to Allergy therapy. She has not required any prednisone. Denies any conjunctivitis and is tolerating the Dupixent well without any adverse effects. Explained to the patient that the Dupixent is not providing acute over treating the symptoms and the allergic reactions. The patient she is to follow-up with Allergy to further discuss immunotherapy. 01/30/2025 the patient is here for pulmonary follow-up visit. The patient overall has been doing very well from a respiratory status. Dupixent continues to be very affecting beneficial. She continues to carry her rescue inhaler but she does not have to use it. Nasal polyps also significantly improved. The issues that she is having a very high blood pressure today. Initially when the mA checked it on the right arm was 175/112. I did check it on the left time was 180/105. The patient is asymptomatic overall on further questions. We did reach out to her primary care at [place]. I did speak to the nurse triage [place] and she was going to call the patient and set her up an appointment for tomorrow. In the meantime if the patient develops any significant symptoms such as headaches palpitations chest pains or any other concerning symptoms she is to go to the ED for urgent medical evaluation. She will continue with the current Dupixent shots. They have been very affecting beneficial will follow-up in the spring for follow-up. 03/02/2025 the patient is here for pulmonary follow-up visit. She continues to struggle with her breathing. Still having hard time with her asthma. Has had significant chest tightness and wheezing. She has been using her nebulizer every 4 hours. She even takes it to work because of her significant chest tightness and wheezing. Unfortunately, she has not been able to restart the Dupixent. The Dupixent has been very effective for her. There was an issue with her pharmacy. We did send a prescription again to the specialty pharmacy since the last 1 does not take her insurance. I am hopeful that this will be clarified soon. In the meantime she is going to need additional prednisone and also send her a course of antibiotics in the meantime. If the patient continues to be symptomatic even after restarting the Dupixent she needs to let us know so we can further address the symptoms. Blood pressure seems to be better at this time. Her lisinopril was increased. The patient needs to be mindful that she has starts developing worsening cough it could be from the TAY inhibitor. She may need to switch her to an ARB if any issues arise with that. [facility] Medical History (Updated 03/02/25 @ 21:04 by Tani Monzon MD) Hypertensive urgency Nasal polyps Cough Asthma Asthma Social History Alcohol intake: never Patient Tobacco Use Status: Never used Tobacco Sexual orientation: Straight/Heterosexual Gender identity: Female Review of Systems Const Denies night sweats ENT Denies change in voice, Denies lip swelling, Denies mouth pain, Reports nasal congestion, Reports nasal discharge and Denies tongue swelling Card Denies chest pain Resp Reports chest congestion, Reports cough and Reports wheezing GI Denies abdominal pain Musc Denies no additional complaints Neuro Denies Neuro-related abnormal movements Psych Denies no additional complaints Florian/Lymph Denies easy bleeding and Denies lymphadenopathy Aller/Immun Denies lip swelling, Denies tongue swelling and Reports wheezing Physical Exam Vital Signs: Last Vital Signs Pulse 104 H 03/02/25 10:13 BP 146/86 H 03/02/25 10:13 Pulse Ox 97 03/02/25 10:13 Oxygen Delivery Method Room Air 03/02/25 10:13 BMI result Body Mass Index 42.3 Const General: alert Neck Neck: Yes normal visual inspection, Yes full ROM and Yes no lymphadenopathy Chest Chest palpation & inspection: normal inspection of the chest Resp Effort & Inspection: normal respiratory effort and prolonged expiratory phase Auscultation: wheezes and diminished lung sounds Cardio Rate: regular rate Rhythm: regular rhythm Heart sounds: S1 normal heart sound present and S2 normal heart sound present GI Palpation (GI): Soft to palpation and nontender Auscultation: normal bowel sounds Skin General skin exam: rashes and/or lesions noted Extrem General: No clubbing, No cyanosis and Yes edema Assessment & Plan Assessment & Plan (1) Asthma: Code(s): J45.909 - Unspecified asthma, uncomplicated Category: Medical Qualifiers: Asthma complication type: with acute exacerbation Asthma persistence: persistent Asthma severity: severe Qualified Code(s): J45.51 - Severe persistent asthma with (acute) exacerbation (2) Nasal polyps: Code(s): J33.9 - Nasal polyp, unspecified Category: Medical (3) Cough: Code(s): R05 - Cough Category: Medical Qualifiers: Cough type: chronic Qualified Code(s): R05.3 - Chronic cough (4) Hypertensive urgency: Code(s): I16.0 - Hypertensive urgency Category: Medical Plan start Symbicort start prednisone taper start Zpack continue Dupixent stopped Breo LILY as needed continue Claritin continue singular follow-up in to 4-6 months Medications: New budesonide-formoterol 160-4.5 mcg/actuation 2 puffs inhalation BID 10.2 grams 11RF 30 days J44.89 - Other specified chronic obstructive pulmonary disease azithromycin 500 mg PO DAILY 5 tabs 0RF 5 days prednisone PO daily; Take 2 tabs daily x 5 days, then 1 tablet daily x 5 days 15 tabs 0RF 10 days Coding Level of Care Code Est Pt Level 4 (41063) Diagnoses Severe persistent asthma with acute exacerbation J45.51 Asthma complication type: with acute exacerbation Asthma persistence: persistent Asthma severity: severe Nasal polyps J33.9 Chronic cough R05.3 Cough type: chronic Hypertensive urgency I16.0 Time Spent (min) 16
[2025-03-02 10:13] VITALS: BP 146/86; PULSE 104; O2SAT 97; BMI 42.3
--- OUTSIDE RECORDS SUMMARY | 2025-03-02 11:25 | XMS_ITS | Encounter Summary ---
Author Organization [facility] Address [facility] [employer] [address] [address] Phone Care Team Providers Care Food Taster Name Role Phone Faby Kaminski DO Primary Care Provid er Encounter Details Date Type Department Care Team (Late st Contact Info) Description 01/28/2021 Transcribe Orders [facility] [address] [place] [address] Chicho Snyder MD, [place] [address] [id number] [email or web address] Social History Tobacco Use Types Packs/Day Years Used Date Smoking Tobacco: Never Smokeless Tobacco: Never Comments Unknown Sex and Gender Information Value Date Recorded Sex Assigned at Not on file Legal Sex Female 10:16 AM EST Gender Identity Not on file Sexual Orientation Not on file documented as of this encounter Plan of Treatment Not on file documented as of this encounter Visit Diagnoses Not on filedocumented in this encounter Care Teams Food Taster Relationship Specialty Start Date End Date Faby Kaminski DO [address] [place] [address] PCP - General Pediatrics 10/11/18 documented as of this encounter Additional Source Comments The information contained in this document represents components of the legal health record. It is not the complete legal health record.[facility]
--- OUTSIDE RECORDS SUMMARY | 2025-03-02 11:25 | XMS_ITS | Encounter Summary ---
Author Organization [employer] [facility] Address [address] [place] [phone] Phone Care Team Providers Care Cloth Tester Quality Name Role Phone Unknown, Unknown Primary Care Provider Faby Samaniego DO Primary Care Provid er Reason for Referral * MRI/CAT Scan - Closed Specialty Diagnoses / Procedures Referred By Mildred santoyo Referred To Contact Procedures CT Face Outside (No Interpretation) System, Provider Not In, [facility] [email or web address] [address] [place] [address] Referral ID Status Reason Start Date Expiration Date Visits Re quested Visits Authorized [id number] Closed 08/26/2018 08/26/2019 1 1 Encounter Details Date Type Department Care Team (Late st Contact Info) Description 08/26/2018 Ancillary Orders [facility],Outside Imaging [address] [place] [address] System, Provider Not In, [facility] [email or web address] [address] [place] [phone] Social History Tobacco Use Types Packs/Day Years Used Date Smoking Tobacco: Never Assessed Comments Unknown Sex and Gender Information Value Date Recorded Sex Assigned at Not on file Legal Sex Female 10:16 AM EST Gender Identity Not on file Sexual Orientation Not on file documented as of this encounter Plan of Treatment Not on file documented as of this encounter Results * CT Face Outside (No Interpretation) (06/02/2016 12:00 AM EST) Narrative SYSTEMGENERATED, DOCUMENTATION - 08/26/2018 11:14 AM EST This study is for PACS storage only and not for interpretation. us Provider Not In System PhD IMG OUTSIDE IMAGING W /OUT INTERPRETATION Final Result documented in this encounter Visit Diagnoses Not on filedocumented in this encounter Care Teams Cloth Tester Quality Relationship Specialty Start Date End Date Unknown, Unknown, PCP - General 06/24/18 10/10/18 Faby Kaminski DO [address] [place] [address] PCP - General Pediatrics 10/11/18 documented as of this encounter Additional Source Comments The information contained in this document represents components of the legal health record. It is not the complete legal health record.[facility]
--- OUTSIDE RECORDS SUMMARY | 2025-03-02 11:25 | XMS_ITS | Clinical Summary ---
Author Organization [facility] Address [address] [facility] [place] [address] Phone Care Team Providers Care Warp Knitter Name Role Phone Vonda Moran MD Primary Care Prov ider Allergies Active Allergy Reactions Criticality Noted Date Comments Aspirin 03/23/2018 Medications albuterol HFA (PROAIR HFA ; PROVENTIL HFA ; VENTOLIN HFA) 90 mcg/actuation inhaler Inhale 2 Puffs into the lungs every 6 hours as needed for Cough, Wheezing or Shortness of Breath. 3 Active loratadine (CLARITIN) 10 mg tablet Take 1 tablet (10 mg total) by mouth 1 (one) time each day. 4 Active montelukast (SINGULAIR) 10 mg tablet TAKE ONE TABLET BY MOUTH EVERY EVENING AT BEDTIME 90 tablet 1 5 Active lisinopril (PRINIVIL,ZESTR IL) 40 mg tablet Take 1 tablet (40 mg total) by mouth 1 (one) time each day. 30 each 5 5 07/30/19 26 Active EPINEPHrine (EpiPen 2-Amilcar) 0.3 mg/0.3 mL injection Inject 0.3 mL (0.3 mg total) into the thigh 1 (one) time for 1 dose. 1 each 5 Active hydroCHLOROthia zide (HYDRODIURIL) 25 mg tablet Take 1 tablet (25 mg total) by mouth 1 (one) time each day. 90 tablet 5 Active EPINEPHrine (EpiPen 2-Amilcar) 0.3 mg/0.3 mL injection Inject 0.3 mg as directed as needed (anaphylaxis) . 2 02/24/20 Discontinu ed(Reorder ) hydroCHLOROthia zide 12.5 mg tablet Take 1 tablet (12.5 mg total) by mouth 1 (one) time each day. 30 each 5 5 02/24/20 Discontinu ed(Patient Discharge) Active Problems Problem Noted Date Diagnosed Date Chronic sinusitis 02/23/2025 Nasal polyps 02/23/2025 Morbid obesity with BMI of 4 0.0-44.9, adult ([facility] V24, [facility] V28) 04/14/2024 Migraines 08/26/2021 Vitamin D deficiency 08/26/2021 Iron deficiency anemia 06/11/2021 Hypertension 05/21/2021 Abnormal Pap smear of cervix 05/20/2021 Overview (04/14/2024): ?LEEP at [place]? Unclear history Allergic rhinitis 03/23/2018 Overview (04/14/2024): Dr Patel Moderate persistent asthma 01/25/2018 Overview (04/14/2024): Follows with Dr Snyder ([facility]) Nasal polyps 01/25/2018 Obstructive sleep apnea syndrome 01/25/2018 Encounters Date Type Department Care Team Description 02/23/2025 9:00 AM EDT Office Visit Adult Medicine [address] [phone] Fouzia Bearden PA Hypertension, unspecified type (Primary Dx); Pure hypercholesterolemia; Morbid obesity with BMI of 40.0-44.9, adult ([facility] V24, [facility] V28); Screening for malignant neoplasm of colon 01/31/2025 10:00 AM EDT Office Visit Adult Medicine [address] [phone] Magy Shaffer PA Primary hypertension (Primary Dx); Elevated blood pressure reading; Prediabetes; Pure hypercholesterolemia 01/30/2025 Telephone Adult Medicine [address] [phone] Vonda South MD from Last 3 Months Immunizations Name Administration Dates Next Due Hep A, Unspecified 09/10/2010 Hepatitis B (Nquaeil-G-Jvcvb , Recombivax HB-Adult) 19yo and older 03/03/2012,12/05/2010,09/10/2010 [...] Site/Laterality Comments OTHER SURGICAL HISTORY 08/26/2016 PROCEDURE: ME NSL/SINUS NDSC MAX ANTROST W/RMVL TISS MAX SINUS; COMMENT: for polyps OTHER SURGICAL HISTORY PROCEDURE: ME NSL/SINUS NDSC MAX ANTROST W/RMVL TISS MAX SINUS; COMMENT: for nasal polyps SECTION PROCEDURE: HISTORICAL DELIVERY TUBAL LIGATION PROCEDURE: HISTORICAL TUBAL LIGATION OTHER SURGICAL HISTORY 04/06/2013 PROCEDURE: CERVICAL LEEP CONE BIOPSY SPCMN PATHOLOGY EX; COMMENT: CIN2 Medical History Medical History Date Comments Morbid obesity with BMI of 4 0.0-44.9, adult (CMS/HCC V24, CMS/HCC V28) 03/23/2018 DX:Morbid obesity wit h BMI of 40.0-44.9, adult (HCC) Allergic rhinitis 03/23/2018 DX:Allergic rh initis Moderate persistent asthma 01/25/2018 DX:Mo derate persistent asthma Nasal polyps 01/25/2018 DX:Nasal polyps Obstructive sleep apnea syndrome 01/25/2018 DX:Obstructive sleep apnea syndrome Migraines 08/26/2021 DX:Migraines Vitamin D deficiency 08/26/2021 DX:Vitamin D deficiency Abnormal Pap smear of cervix 05/20/2021 DX: Abnormal Pap smear of cervix; COMMENT: ?LEEP at [place]? Unclear history Hypertension 05/21/2021 DX:Hypertension Iron deficiency [...] Date Smoking Tobacco: Never Smokeless Tobacco: Never Tobacco Cessation:Counseling Given: Not Answered Alcohol Use Standard Drinks/Week Comments Not Currently 0 (1 standard drink = 0.6 oz pur e alcohol) Housing Instability Answer Date Recorde d Are you worried that in the next 2 months you may not have stable housing? No 01/31/2025 Food Access & Nutrition Answer Date Rec orded Do you have access to a vari ety of food including fruits and vegetables? Yes 01/31/2025 Health Literacy Answer Date Recorded How often do you need to hav e someone help you when you read instructions, pamphlets, or other written material from your doctor or pharmacy? Never 01/31/2025 Caregiver: How often do you need to have someone help you when you read instructions, pamphlets, or other written material from your doctor or pharmacy? Not on file 01/31/2025 Financial Risk Answer Date Recorded How hard is it for you to pa y for the very basics like food, housing, medical care, and air conditioning / heating? Not very hard 01/31/2025 Transportation Answer Date Recorded Has the lack of transportati on kept you from meetings, work, or from getting things needed for daily living? No Has the lack of transportati on kept you from medical appointments or from getting medications? No 01/31/2025 Social Isolation Answer Date Recorded How often do you feel lonely or isolated from th ose around you? Never 01/31/2025 Food Risk Answer Date Recorded Within the past 12 months we worried whether our food would run out before we got money to buy more. Never true 01/31/2025 Within the past 12 months th e food we bought just didn't last and we didn't have money to get more. Never true 01/31/2025 Dependent Care Answer Date Recorded Do you need help finding or paying for care for your loved ones. For example, child care associate or elderly care for an older adult? No 01/31/2025 Education Answer Date Recorded Do you think completing more education or training, like finishing a GED, going to college, or learning a trade, would be helpful for you? No 01/31/2025 Employment and Income Answer Date Recor ded During the last four weeks, have you been actively looking for work? No 01/31/2025 Living Situation Answer Date Recorded What is your living situation? 0 01/31/2025 Comments No Sex and Gender Information Value Date Recorded Sex Assigned at Not on file Legal Sex Female 12:21 AM EST Gender Identity Not on file Sexual Orientation Not on file Obstetrics History Last Filed Vital Signs Vital Sign Reading Time Taken Comments Blood Pressure 137/103 02/23/2025 9:18 AM EDT Pulse 94 02/23/2025 9:09 AM EDT Temperature 36.9 C (98.5 F) 02/23/2025 9:09 AM EDT Respiratory Rate 16 02/23/2025 9:09 AM EDT Oxygen Saturation 97% 02/23/2025 9:09 AM EDT Inhaled Oxygen Concentration - - Weight 105 kg (231 lb 6.4 oz) 02/23/2025 9:09 AM EDT Height 157.5 cm (5' 2 ) 02/23/2025 9:09 AM EDT Body Mass Index 42.32 02/23/2025 9:09 AM EDT Plan of Treatment Upcoming Encounters Date Type Department Care Team (Late st Contact Info) Description 03/22/2025 8:00 AM EDT Appointment Radiology Department - [address] [phone] 03/27/2025 8:30 AM EDT Office Visit Adult Medicine [address] [phone] Vonda Moran MD [address] [place] [address] Health Maintenance Due Date Last Done Comments Pneumococcal Vaccine: Pediatrics (0 to 5 Years) and At-Risk Patients (6 to 49 Years) (2 of 2 - PCV) 10/14/2016 10/15/2015, 04/03/2014 Colorectal Cancer Screening: Colonoscopy 06/07/2022 HIV Screening 06/07/2022 Influenza Vaccine (#1) 2025 , 05/03/2023, 04/09/2022, Additional history exists Breast Cancer Screening 01/18/2026 01/19/20 24, 01/19/2024, 12/26/2022 Hypertension/CHF/CAD Annual BMP Blood Test 01/31/2026 01/31/2025, 03/31/2024, 03/31/2024 Social Influencers of Health Screening 01/31/2026 01/31/2025 Cervical Cancer Screening: HPV 04/17/2027 04/17/2022 Cholesterol Screening (Lipid Panel) 01/31/2030 01/31/2025, 03/31/2024, 03/31/2024 DTaP,Tdap,and Td Vaccines (3 - Td or Tdap) 04/06/2030 04/06/2020, 04/01/2010 Hepatitis A Vaccines Aged Out 09/10/2010 No long er eligible based on patient's age to complete this topic Hepatitis B Vaccines Completed 03/03/2012, 12/05/2010, 09/10/2010 Hepatitis C Screening Completed 04/06/2020 COVID-19 Vaccine Discontinued 10/16/2020, 09/25/2020 Depression Screening Completed 01/31/2025, 08/18/19 24 HIB Vaccines Aged Out No longer eligi [...] Procedure Name Priority Date/Time Associated Diagnosis Comments ECG 12-LEAD TRACING ONLY Routine 02/23/2025 9:41 AM EDT Hypertension, unspecified type COMPREHENSIVE METABOLIC PANEL Routine 01/31/2025 10:55 AM EDT Primary hypertension LIPID PANEL WITH REFLEX TO DIRECT LDL Routine 01/31/2025 10:55 AM EDT Pure hypercholesterolemia HEMOGLOBIN A1C Routine 01/31/2025 10:55 AM EDT Prediabetes ECG 12-LEAD TRACING ONLY Routine 01/31/2025 10:18 AM EDT Primary hypertension SCREENING MAMMOGRAPHY BI 2-VIEW BREAST INC CAD Routine 01/19/2024 4:01 PM EDT Encounter for screening mammogram for malignant neoplasm of breast DEPRESSION SCREENING Routine 08/18/2023 HPV Routine 04/17/2022 HEPATITIS C SCREENING Routine 04/06/2020 from Last 3 Months or Most Recently Relevant to Health Maintenance Results * ECG 12 lead Tracing Only (02/23/2025 9:41 AM EDT) Only the most recent of2 resultswithin the time period is included. Rate 86 ME Interval 130 ms QRSD Interval 96 ms QT Interval 359 ms Q-T Interval (Corrected) 430 Impressions Susie Andrea MA - 02/23/2025 9:41 AM EDT LVH Narrative Susie Andrea MA - 02/23/2025 9:41 AM EDT Blood pressure 137/103 us Fouzia HALL ECG ORDERABLES Final Result * (ABNORMAL) Lipid panel with reflex to direct LDL (01/31/2025 10:55 AM EDT) Cholesterol 209(H) 0 - 200 mg/dL LAB CHEMISTRY METHOD 01/31/2025 3:21 PM [facility] Triglycerides 218(H) 0 - 150 mg/dL LAB CHEMISTRY METHOD 01/31/2025 3:21 PM [facility] HDL 50 >=40 mg/dL LAB CHEMISTRY METHOD 01/31/2025 3:21 PM [facility] LDL Calculated 115(H) 0 - 100 mg/dL LAB CHEMISTRY METHOD 01/31/2025 3:21 PM [facility] Comment:Estimated LDL Calcul ated using equation: Total cholesterol - HDL cholesterol - (Triglycerides/5) VLDL Cholesterol Paul 43.6 mg/dL LAB CHEMISTRY METHOD 01/31/2025 3:21 PM [facility] Non HDL Chol. (LDL+VLDL) 159(H) <145 mg/dL LAB CHEMISTRY METHOD 01/31/2025 3:21 PM [facility] Chol/HDL Ratio 4.2 0.0 - 4.4 LAB CHEMISTRY METHOD 01/31/2025 3:21 PM [facility] Blood Venous blood specimen / Unknown Venipuncture / Unknown 01/31/2025 10:55 AM EDT 01/31/2025 10:55 AM EDT us Magy HALL LAB BLOOD ORDERABLES Final Resul t Performing Organization Address [facility]/ZIP Co de Phone Number [facility] [address] [place] [address], [place] [phone] * Hemoglobin A1c (01/31/2025 10:55 AM EDT) [facility] Hemoglobin A1C 5.7 <6.5 % LAB CHEMISTRY METHOD 01/31/2025 1:04 PM EDT [facility] Mean Bld Glu Estim. 117 mg/dL LAB CHEMISTRY METHOD 01/31/2025 1:04 PM EDT [facility] Blood Venous blood specimen / Unknown Venipuncture / Unknown 01/31/2025 10:55 AM EDT 01/31/2025 10:55 AM EDT us Magy HALL LAB BLOOD ORDERABLES Final Resul t Performing Organization Address [facility]/ZIP Co de Phone Number [facility] [address] [place] [address], [place] [phone] * Comprehensive metabolic panel (01/31/2025 10:55 AM EDT) [facility] Sodium 136 133 - 145 mmol/L LAB CHEMISTRY METHOD 01/31/2025 3:21 PM T [facility] Potassium 4.2 3.5 - 5.5 mmol/L LAB CHEMISTRY METHOD 01/31/2025 3:21 PM EDT [facility] Chloride 105 96 - 110 mmol/L LAB CHEMISTRY METHOD 01/31/2025 3:21 PM [facility] CO2 26 21 - 32 mmol/L LAB CHEMISTRY METHOD 01/31/2025 3:21 PM [facility] Anion Gap 5 3 - 11 LAB CHEMISTRY METHOD 01/31/2025 3:21 PM [facility] Glucose 94 70 - 100 mg/dL LAB CHEMISTRY METHOD 01/31/2025 3:21 PM [facility] BUN 9 5 - 25 mg/dL LAB CHEMISTRY METHOD 01/31/2025 3:21 PM [facility] Creatinine 0.60 0.50 - 1.10 mg/dL LAB CHEMISTRY METHOD 01/31/2025 3:21 PM [facility] eGFR 113 >=60 mL/min/1. 73m2 LAB CHEMISTRY METHOD 01/31/2025 3:21 PM [facility] Comment:Calculation based on the Chronic Kidney Disease Epidemiology Collaboration (CKD-EPI) equation refit without adjustment for race. BUN/Creatinine Ratio 15.0 LAB CHEMISTRY METHOD 01/31/2025 3:21 PM [facility] Calcium 10.5 8.5 - 10.5 mg/dL LAB CHEMISTRY METHOD 01/31/2025 3:21 PM [facility] AST (SGOT) 14 10 - 42 unit/L LAB CHEMISTRY METHOD 01/31/2025 3:21 PM [facility] ALT (SGPT) 24 10 - 60 unit/L LAB CHEMISTRY METHOD 01/31/2025 3:21 PM [facility] Alkaline Phosphatase 107 42 - 121 unit/L LAB CHEMISTRY METHOD 01/31/2025 3:21 PM [facility] Total Protein 7.2 6.0 - 8.0 g/dL LAB CHEMISTRY METHOD 01/31/2025 3:21 PM [facility] Albumin 3.9 3.2 - 5.0 g/dL LAB CHEMISTRY METHOD 01/31/2025 3:21 PM [facility] Total Bilirubin 0.5 0.0 - 1.4 mg/dL LAB CHEMISTRY METHOD 01/31/2025 3:21 PM [facility] Blood Venous blood specimen / Unknown Venipuncture / Unknown 01/31/2025 10:55 AM EDT 01/31/2025 10:55 AM EDT us Magy HALL LAB BLOOD ORDERABLES Final Resul t [facility] [address] [place] [address], * SCREENING MAMMOGRAPHY BI 2-VIEW BREAST INC [...] PROCEDURES Final Result * Depression Screening (08/18/2023) Depression Screening abstracted Historical Provider HEALTH MAINTENANCE Final Result * Cervical Cancer Screening: HPV (04/17/2022) Cervical Cancer Screening: HPV negative,a bstracted Historical Provider HEALTH MAINTENANCE Final Result * Hepatitis C Screening (04/06/2020) Hepatitis C Screening abstracted Historical Provider HEALTH MAINTENANCE Final Result from Last 3 Months or Most Recently Relevant to Health Maintenance Insurance [facility] [employer] Care Teams Warp Knitter Relationship Specialty Start Date End Date Vonda Moran MD [address] [place] [phone] PCP - General Internal Medicine 01/20/25
--- OUTSIDE RECORDS SUMMARY | 2025-03-02 11:25 | XMS_ITS | Clinical Summary ---
Author Organization [facility] Address [address] [place] [phone] Phone Care Team Providers Care Installations Inspector Name Role Phone Faby Kaminski DO Primary [...] 2 - PCV) 10/14/2016 10/15/2015 MAMMOGRAM 2019 COLOGUARD 2024 COLONOSCOPY 2024 COLORECTAL CANCER SCREENING 2024 FIT TEST 2024 FOBT 2024 SIGMOIDOSCOPY 2024 VIRTUAL COLONOSCOPY 2024 INFLUENZA VACCINE (#1) 2025 0, 04/12/2019 COVID-19 VACCINE (2 - 2024-2 6 season) 2025 10/16/2020 Adult Td,Tdap Booster 04/06/2030 04/06/2020 SMOKING STATUS [...] topic Medical Devices Not on file Insurance [facility] NON [facility] PCP [facility] [employer] NON NSPG PCP [facility] [employer] [facility] [place] NON [place]SPG PCP S[facility] NON NSPG PCP S[employer] NON NSPG PCP [facility] [employer] [facility] Care Teams Installations Inspector Relationship Specialty Start Date End Date Faby Kaminski DO [address] [place] [id number] PCP - General Pediatrics 10/11/18 Additional Source Comments The information contained in this document represents components of the legal health record. It is not the complete legal health record.[facility]
== END 2025-03-02 10:39 | disposition home or self-care (01) ==
LOC: HO.HPS 10:10
PROVIDERS: PCP Physician Assistant; Visit Provider Hospitalist
DX: J45.51 Severe persistent asthma with (acute) exacerbation (principal); J33.9 Nasal polyp, unspecified; R05.3 Chronic cough; I16.0 Hypertensive urgency
CPT/HCPCS: 99214

== ENCOUNTER → 2025-03-02 10:09 | Outpatient (BNVA) | payer OTHER, SELFPAY | PROVIDERS: PCP Physician Assistant; Visit Provider Hospitalist | DX: J45.51 Severe persistent asthma with (acute) exacerbation (principal); J33.9 Nasal polyp, unspecified; R05.3 Chronic cough; I16.0 Hypertensive urgency | CPT/HCPCS: 99212 ==